=== PATIENT | male | born 1965 | race Two or more races ===

== ENCOUNTER 2021-07-08 08:56 | Emergency (ER) | payer OTHER ==
[2021-07-08 09:15] VITALS: RESP 18; TEMP 98.3
[2021-07-08 10:30] LABS: Basophils % (A) 0 %; Eosinophils % (A) 0 %; HCT 46.3 % (39.0-53.0); HGB 16.2 gm/dL (13.0-17.5); Lymphocytes % (A) 12 %; MCH 30.3 pg (25.0-35.0); MCV 86.6 fL (80.0-100.0); Mean Platelet Volume 8.6; Monocytes # (A) 0.4 k/uL (0-1.0); Monocytes % (A) 4 %; Neutrophils # (A) 6.6 k/uL (1.3-7.7); Neutrophils % (A) 81 %; Platelet Count 240 k/uL (150-450); RBC 5.34 m/uL (4.30-5.90); RDW 12.4 % (11.5-15.5); WBC 8.1 k/uL (3.8-10.6)
--- NOTE | 2021-07-08 10:41 | ED ---
General Adult HPI - General Chief complaint: Weakness Stated complaint: Covid+/antibodies Time Seen by Provider: 07/08/21 09:14 Source: patient, family Mode of arrival: ambulatory Limitations: no limitations - History of Present Illness Initial comments: 56-year-old male presents to the emergency room for a chief complaint of not feeling well. Patient tested positive for COVID-19 on 07/03/2021. Symptoms started 3 days before that. Patient states he has been very weak. Minimal shortness of breath but no significant shortness of breath or chest pain. He has had diarrhea and hasn't been able to eat or drink much because he has a decreased appetite. He has been having body aches and feels shaky. Patient is not vaccinated.Patient has no other complaints at this time including shortness of breath, chest pain, abdominal pain, nausea or vomiting, headache, or visual changes. - Related Data Home Medications Medication Instructions Recorded Confirmed No Known Home Medications 07/08/21 07/08/21 Allergies Allergy/AdvReac Type Severity Reaction Status Date / Time No Known Allergies Allergy Verified 07/08/21 11:04 Review of Systems ROS Statement: Those systems with pertinent positive or pertinent negative responses have been documented in the HPI. ROS Other: All systems not noted in ROS Statement are negative. Past Medical History Past Medical History: No Reported History History of Any Multi-Drug Resistant Organisms: None Reported Past Surgical History: No Surgical Hx Reported Past Psychological History: No Psychological Hx Reported Smoking Status: Never smoker Past Alcohol Use History: None Reported Past Drug Use History: None Reported General Exam Limitations: no limitations General appearance: alert, in no apparent distress Head exam: Present: atraumatic Eye exam: Present: normal appearance, PERRL, EOMI. Absent: scleral icterus, conjunctival injection ENT exam: Present: normal exam, mucous membranes moist Neck exam: Present: normal inspection, full ROM. Absent: tenderness Respiratory exam: Present: normal lung sounds bilaterally. Absent: respiratory distress, wheezes Cardiovascular Exam: Present: regular rate, normal rhythm, normal heart sounds GI/Abdominal exam: Present: soft, normal bowel sounds. Absent: distended, tenderness Neurological exam: Present: alert Course Vital Signs 07/08/21 09:10 Temperature 98.3 F Pulse Rate 94 Respiratory 18 Rate Blood Pressure 148/76 O2 Sat by Pulse 97 Oximetry Medical Decision Making - Medical Decision Making vitals Stable. Patient is well appearing. CBC is unremarkable. CMP does reveal evidence of dehydration. Patient is having diarrhea. He was given a liter of fluids.Effexor consistent with pneumonia from . Patient was given antibodies and monitored for an hour. Will be discharged home. I did discuss strict return parameters or shortness of breath. - Lab Data Result diagrams: 07/08/21 10:11 07/08/21 10:11 Lab Results 07/08/21 07/08/21 Range/Units 10:11 10:11 WBC 8.1 (3.8-10.6) k/uL RBC 5.34 (4.30-5.90) m/uL Hgb 16.2 (13.0-17.5) gm/dL Hct 46.3 (39.0-53.0) % MCV 86.6 (80.0-100.0) fL MCH 30.3 (25.0-35.0) pg MCHC 35.0 (31.0-37.0) g/dL RDW 12.4 (11.5-15.5) % Plt Count 240 (150-450) k/uL MPV 8.6 Neutrophils % 81 % Lymphocytes % 12 % Monocytes % 4 % Eosinophils % 0 % Basophils % 0 % Neutrophils # 6.6 (1.3-7.7) k/uL Lymphocytes # 1.0 (1.0-4.8) k/uL Monocytes # 0.4 (0-1.0) k/uL Eosinophils # 0.0 (0-0.7) k/uL Basophils # 0.0 (0-0.2) k/uL Sodium 133 L (137-145) mmol/L Potassium 4.1 (3.5-5.1) mmol/L Chloride 100 (98-107) mmol/L Carbon Dioxide 22 (22-30) mmol/L Anion Gap 11 mmol/L BUN 25 H (9-20) mg/dL Creatinine 0.81 (0.66-1.25) mg/dL Est GFR (CKD-EPI)AfAm >90 (>60 ml/min/1.73 sqM) Est GFR (CKD-EPI)NonAf >90 (>60 ml/min/1.73 sqM) Glucose 103 H (74-99) mg/dL Calcium 8.3 L (8.4-10.2) mg/dL Total Bilirubin 1.4 H (0.2-1.3) mg/dL AST 79 H (17-59) U/L ALT 66 H (4-49) U/L Alkaline Phosphatase 41 (38-126) U/L Total Protein 6.0 L (6.3-8.2) g/dL Albumin 3.2 L (3.5-5.0) g/dL Disposition Clinical Impression: Hypertension, COVID-19 Disposition: HOME SELF-CARE Condition: Good Instructions (If sedation given, give patient instructions): Coronavirus Disease 2019 (COVID-19) Additional Instructions: Please follow-up with your doctor in one to 2 days. Return to the emergency room for any worsening symptoms such as worsening shortness of breath. Is patient prescribed a controlled substance at d/c from ED?: No Referrals: Aruna Lanza MD [STAFF PHYSICIAN] - 1-2 days Time of Disposition: 11:19
[2021-07-08] MEDS ORDERED: BAMLANIVIMAB (EUA) 700 MG, ETESEVIMAB (EUA) 1,400 MG in SODIUM CHLORIDE 0.9% 50 ML IVPB ONE (11:00)
[2021-07-08] MEDS ORDERED: SODIUM CHLORIDE 0.9% 50 ML IVPB ONE (11:00)
[2021-07-08 11:05] LABS: ALT 66 U/L (4-49); African American GFR (CKD) >90 (>60 ml/min/1.73 sqM); Albumin 3.2 g/dL (3.5-5.0); Anion Gap 11 mmol/L; Blood Urea Nitrogen 25 mg/dL (9-20); Calcium 8.3 mg/dL (8.4-10.2); Carbon Dioxide 22 mmol/L (22-30); Chloride 100 mmol/L (98-107); Glucose 103 mg/dL (74-99); Non-African American GFR(CKD) >90 (>60 ml/min/1.73 sqM); Sodium 133 mmol/L (137-145); Total Bilirubin 1.4 mg/dL (0.2-1.3)
[2021-07-08 11:06] LABS: AST 79 U/L (17-59); Alkaline Phosphatase 41 U/L (38-126); Potassium 4.1 mmol/L (3.5-5.1)
[2021-07-08] MEDS ORDERED: SODIUM CHLORIDE 0.9% 1,000 ML IV STA (11:11)
--- NOTE | 2021-07-08 11:29 | XR ---
EXAMINATION TYPE: XR chest 1V portable DATE OF EXAM: 07/08/2021 COMPARISON: NONE HISTORY: Covid TECHNIQUE: Single frontal view of the chest is obtained. FINDINGS: Patchy bilateral airspace disease is present, lung volumes are low. Cardiac style silhouet te within normal limits. No evident pneumothorax or pleural effusion. Bones are within normal limits. IMPRESSION: Correlate for pneumonia
[2021-07-08 12:53] VITALS: BP 125/77; PULSE 79
== END 2021-07-08 12:52 | disposition home or self-care (01) ==
LOC: EC 08:56
DX: U07.1 COVID-19 (principal); I10 Essential (primary) hypertension
CPT/HCPCS: 36415; 80053; 85025; 71045; 99285; J3490